=== PATIENT | male | born 1995 ===

== ENCOUNTER 2018-01-14 22:23 | Emergency (ER) | payer SELFPAY ==
[2018-01-15 00:13] VITALS: RESP 18; TEMP 98
--- NOTE | 2018-01-15 00:19 | ED PDOC ---
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 The patient's friend who translated at bedside stated that he was using a Brillo pad that cut his finger while scrubbing the oven. Denies numbness and tingling, hand pain, or any other complaints at this time. 01/15/18 12:13 Time/Duration: Prior to Arrival, 1-3 hours Symptom Onset: Sudden Symptom Course: Unchanged Quality: Throbbing Severity Level: 3 Activities at Onset: Rest Context: Home Past Medical History - Provider Review Nursing Documentation Reviewed: Yes - Travel History Have you recently traveled outside [place] w/in the past 3 mons?: Yes - Tetanus Immunization Tetanus Immunization: Unknown - Psychiatric Hx Substance Use: No - Surgical History Hx Appendectomy: Yes Family/Social History - Physician Review Nursing Documentation Reviewed: Yes Family/Social History: Unknown Family HX Smoking Status: Never Smoked Hx Alcohol Use: No Hx Substance Use: No Allergies/Home Meds Allergies/Adverse Reactions: Allergies No Known Allergies Allergy (Verified 01/15/18 00:07) Review of Systems - Review of Systems Constitutional: Normal Eyes: Normal ENT: Normal Respiratory: Normal Cardiovascular: Normal Gastrointestinal: Normal Genitourinary Male: Normal Musculoskeletal: Normal Skin: Normal, Laceration (Left thumb) Neurological: Normal Endocrine: Normal Hemo/Lymphatic: Normal Psychiatric: Normal Physical Exam Vital Signs Reviewed: Yes Vital Signs Temp Pulse Resp BP Pulse Ox 01/15/18 02:31 75 18 125/75 99 01/15/18 00:23 72 18 127/80 97 01/15/18 00:08 98.0 F 77 18 129/93 H 97 Temperature: Afebrile Blood Pressure: Normal Pulse: Regular Respiratory Rate: Normal Appearance: Positive for: Well-Appearing, Non-Toxic, Comfortable Pain Distress: Mild Mental Status: Positive for: Alert and Oriented X 3 - Systems Exam Head: Present: Atraumatic, Normocephalic Pupils: Present: PERRL Extroacular Muscles: Present: EOMI Conjunctiva: Present: Normal Mouth: Present: Moist Mucous Membranes Neck: Present: Normal Range of Motion Respiratory/Chest: Present: Clear to Auscultation, Good Air Exchange. No: Respiratory Distress, Accessory Muscle Use Cardiovascular: Present: Regular Rate and Rhythm, Normal S1, S2. No: Murmurs Abdomen: Present: Normal Bowel Sounds. No: Tenderness, Distention, Peritoneal Signs Back: Present: Normal Inspection Upper Extremity: Present: Normal Inspection. No: Cyanosis, Edema Lower Extremity: Present: Normal Inspection. No: Edema Neurological: Present: GCS=15, CN II-XII Intact, Speech Normal, Motor Func Grossly Intact, Normal Sensory Function Skin: Present: Warm, Dry, Normal Color, Laceration (Left thumb pad approx 3 cm in length and approx 4 mm in depth with good approximation of edges). No: Rashes Psychiatric: Present: Alert, Oriented x 3, Normal Insight, Normal Concentration Medical Decision Making ED Course and Treatment: 01/15/18 00:24 Impression Yury Carbajal is a 22 year old , male who presents with a laceration to the left thumb that he sustained approximately 2 hrs ago while cleaning his oven at home. On exam, Left thumb pad laceration, approx 3cm in length and approx 4mm in depth with good approximation of edges; no foreign bodies appreciated, little blood loss at site Plan Clean and suture left thumb laceration assess and dispo Progress Note Pt was prepped for closure of the laceration digital block of left thumb used as well as local infiltration Pt tolerated procedure well with mild pain at the wound site Ibuprofen 600 mg PO given prior to dc Told to follow up for wound check and suture removal in 7 days; advised that if wound becomes irritated, warm and red, to return to ED promptly for eval 01/15/18 02:05 - Medication Orders Current Medication Orders: Discontinued Medications Ibuprofen (Motrin Tab) 600 mg PO STAT STA Stop: 01/15/18 02:04 Last Admin: 01/15/18 02:20 Dose: 600 mg BOAZ Pain/Vitals Document 01/15/18 02:20 JOL (Rec: 01/15/18 02:30 JOL [id number]) Pain Reassessment Is This A Pain ReAssessment? No Sleep Is patient sleeping during reassessment? No Pain Scale Used Pain Scale Used Numeric Location Left, Right or Bilateral Left Pain Location Body Site Finger Intensity 6 Scale Used Numeric Lidocaine HCl (Lidocaine 1% (20ml)) 20 ml IJ STAT STA Stop: 01/15/18 00:27 Tetanus/Reduced Diphtheria/Acell Pertussis (Boostrix Vaccine Inj) 0.5 ml IM .ONCE ONE Stop: 01/15/18 00:28 Last Admin: 01/15/18 00:46 Dose: 0.5 ml [facility] Immunization Data Document 01/15/18 00:46 JORadha (Rec: 01/15/18 00:46 JOL [id number]) Immunization Data Vaccine Information Sheet Given Yes - Procedure PROCEDURE NOTE (Text): 01/15/18 00:29 PROCEDURE: LACERATION REPAIR Performed by the emergency provider Location: Left ventral aspect of thumb Length: 3.0 cm in length and 4mm depth Description: {"clean wound edges","no foreign bodies"} Distal CMS: Normal. No deficits. Neurovascularly intact. Anesthesia: 7cc Lidocaine 1% Digital block, 3 cc local infiltration Preparation: The wound was POWER-CLEANED with NS and [place]. The area was prepped and draped in the usual sterile fashion. Exploration: The wound was explored and no foreign bodies were found. Procedure: The wound was closed with 5.0 nylon. There was adequate approximation. In total, 9 sutures were used. Post-Procedure: Good closure and hemostasis. The patient tolerated the procedure well and there were no complications. CSM remains intact. Post procedure dressing applied. Instructions given to return in 7 days for suture removal 01/15/18 00:31 Disposition/Present on Arrival - Present on Arrival Any Indicators Present on Arrival: Yes History of DVT/PE: No History of Uncontrolled Diabetes: No Urinary Catheter: No History of Decub. Ulcer: No History Surgical Site Infection Following: None - Disposition Have Diagnosis and Disposition been Completed?: Yes Diagnosis: Laceration Disposition: HOME/ ROUTINE Disposition Time: 01:56 Patient Plan: Discharge Condition: GOOD Discharge Instructions (ExitCare): Wound Care (DC), Laceration Repair With Stitches (DC) Additional Instructions: Please keep the wound clean and dry and return to the emergency department in 7 days for suture removal. Take Ibuprofen with food for pain relief and use ice or gel packs to assist with inflammation and pain. If you notice the wound becoming excessively warm and red with swelling and bleeding, return to the ER immediately for evaluation Refer to the handouts you received for further instruction Be Well. Prescriptions: Ibuprofen [Motrin Tab] 600 mg PO Q6 PRN 5 Days #20 tab PRN Reason: pain/fever Forms: [employer] (Citizen [place])
[2018-01-15] MEDS ORDERED: Lidocaine 1% Inj (20ml) IJ STA (00:26)
[2018-01-15] MEDS ORDERED: TDAP Vaccine 0.5 mL Syr IM ONE (00:27)
[2018-01-15 05:36] VITALS: BP 125/75; PULSE 75; O2SAT 99
== END 2018-01-15 02:31 | disposition home or self-care (01) ==
LOC: ED 22:23
DX: S61.012A Laceration without foreign body of left thumb without damage to nail, initial encounter (principal); W45.8XXA Other foreign body or object entering through skin, initial encounter; Y93.E9 Activity, other interior property and clothing maintenance; Y92.009 Unspecified place in unspecified non-institutional (private) residence as the place of occurrence of the external cause; Z23 Encounter for immunization